=== PATIENT | female | born 1955 | race Two or more races ===

== ENCOUNTER 2017-02-15 12:27 | Emergency (ER) | payer SELFPAY ==
[~2017-02-15] VITALS: Ht 152.4 cm; Wt 53.0 kg
[2017-02-15] MEDS ORDERED: ONDANSETRON 2MG/ML, 2ML ONE (12:49)
[2017-02-15] MEDS ORDERED: MECLIZINE CHEWABLE 25 MG TAB PO ONE (13:00)
[2017-02-15] MEDS ORDERED: ONDANSETRON 2MG/ML, 2ML IVPush ONE (13:00)
[2017-02-15] MEDS ORDERED: SODIUM CHLORIDE 0.9% 1,000ML IVBOLUS ONE (13:00)
[2017-02-15] MEDS ORDERED: SODIUM CHLORIDE FLUSH 10ML SYR IVF ONE (13:00)
[2017-02-15 13:06] LABS: HEMATOCRIT 42.1 % (34.6-47.8); HEMOGLOBIN 14.3 g/dL (11.7-16.4); WHITE BLOOD COUNT 7.6 x10^3/uL (3.4-10)
[2017-02-15] MEDS ORDERED: MECLIZINE CHEWABLE 25 MG TAB ONE (13:09)
[2017-02-15 13:14] LABS: BLOOD UREA NITROGEN 13 mg/dL (7-18)
[2017-02-15 13:36] LABS: ASPARTATE AMINO TRANSFERASE 30 U/L (15-37)
[2017-02-15 15:26] VITALS: BP 101/62
== END 2017-02-15 15:43 | disposition home or self-care (01) ==
LOC: ED 15:30
DX: R42 Dizziness and giddiness (principal)
CPT/HCPCS: 36415; 80048; 80076; 80307; 81001; 82040; 83690; 85025; 87086; 93005; 96361; 96374; 99285; J2405; J7030; G0479